=== PATIENT | male | born 1975 | race Caucasian/White ===

== ENCOUNTER 2016-11-04 12:56 | Emergency (ER) | payer MEDICAID ==
[~2016-11-04] VITALS: Ht 175.3 cm; Wt 82.6 kg
[2016-11-04 13:04] VITALS: BP 136/77
--- NOTE | 2016-11-04 13:53 | Emergency Room Report ---
History of Present Illness General Chief Complaint: Neck Pain Source: Patient Present Illness HPI 41 YO Male presents to the ED c/o itchy - dry rash on posterior neck x over 1 week, with swollen lump on the back of the head. Pt. denies pain report the lump will become tender 3/10 in severity after palpation. Denies fevers or chills. Denies lesions/rashes elsewhere on the body. Denies new medications or body washes or creams. denies swelling of the lips, tongue , airway, wheezing, or shortness of breath. Denies recent travel, recent illness or ill contacts. pt. reports nasal congestion x 2 days, reports intermittent sneezing, denies throat pain, neck pain or stiffness, nausea or vomiting. Denies CP, Palpitations , LOC, AMS, dizziness, Changes in Vision, Sensation, paresthesias, or a sudden severe headache. Allergies: Coded Allergies: No Known Allergies (Unverified , 11/04/16) Patient History Past Medical History: see triage record Past Surgical History: none Pertinent Family History: none Immunizations: UTD Reviewed Nursing Documentation: PMH: Agreed, PSxH: Agreed Nursing Documentation-PMH Past Medical History: No Stated History Review of Systems All Other Systems: negative except mentioned in HPI Physical Exam Vital Signs Date Time Temp Pulse Resp B/P Pulse Ox O2 Delivery O2 Flow Rate FiO2 11/04/16 13:04 97.9 87 18 136/77 95 Sp02 EP Interpretation: reviewed, normal General Appearance: no apparent distress, alert, GCS 15, non-toxic Head: normocephalic, atraumatic Eyes: bilateral eye PERRL, bilateral eye normal inspection ENT: hearing grossly normal, normal pharynx, no angioedema, normal voice, TMs + canals normal, uvula midline, other - no appreciable nasal discharge, or congestion noted. Neck: full range of motion, no meningismus, no bony tend, supple/symm/no masses Respiratory: lungs clear, normal breath sounds, speaking full sentences Cardiovascular #1: regular rate, rhythm, no edema Musculoskeletal: back normal, gait/station normal, normal range of motion, non- tender Neurologic: alert, oriented x3, responsive, motor strength/tone normal, sensory intact, speech normal Psychiatric: judgement/insight normal, memory normal, mood/affect normal Skin: normal color, warm/dry, well hydrated, rash - dry confluent non- blanching pink-purple plaques on the posterior neck and upper shoulder, with well defined border, no discharge, temperature, vessicles, or blisters. Lymphatic: other - posterior cervical and occipital LAD noted, no erythema or increased temperature to palpation. Medical Decision Making PA Attestation Dr. Mchugh is my supervising Physician whom patient management has been discussed with. Diagnostic Impression: Primary Impression: Tinea cruris Additional Impressions: Dermatitis Nasal sinus congestion Rash and nonspecific skin eruption ER Course Pt. presents to the ED c/o itchy - dry rash on posterior neck x over 1 week, with swollen lump on the back of the head. Pt. denies pain report the lump will become tender 3/10 in severity after palpation. Denies fevers or chills. denies lesions/rashes elsewhere on the body. denies recent travel, recent illness or ill contacts. pt. reports nasal congestion x 2 days, reports intermittent sneezing, denies throat pain, neck pain or stiffness, nausea or vomiting. Denies CP, Palpitations, LOC, AMS, dizziness, Changes in Vision, Sensation, paresthesias, or a sudden severe headache. Ddx considered but are not limited to cellulitis, scabies, shingles, varicella, dermatitis, urticaria, eczema, tinea Vital signs: are WNL, pt. is afebrile H&PE are most consistent with tinea infection or eczema dermatitis, no evidence of secondary bacterial infection. ORDERS: none required at this time, the diagnosis is clinical ED INTERVENTIONS: None required at this time. d/w pt. about antibiotic resistance, and that antibiotics are not warranted for his current symptoms. pt. requested abx. multiple times, and extensive pt. education was given. In addition to proper follow up instructions. DISCHARGE: At this time pt. is stable for d/c to home. Will provide printed patient care instructions, and any necessary prescriptions. Care plan and follow up instructions have been discussed with the patient prior to discharge. Last Vital Signs Date Time Temp Pulse Resp B/P Pulse Ox O2 Delivery O2 Flow Rate FiO2 11/04/16 13:04 97.9 87 18 136/77 95 Disposition: HOME, SELF-CARE Condition: Stable Scripts Cetirizine Hcl* (ZYRTEC*) 10 Mg Tablet 10 MG ORAL DAILY for 30 Days, #30 TAB 0 Refills Prov: Albertina Drake 11/04/16 Mometasone Furoate (NASONEX) 17 Gm [place].pump 2 SPRAYS NASAL DAILY, #17 GM 0 Refills Prov: Albertina Drake 11/04/16 Clotrimazole (Lotrimin AF) 12 Gm Cream..g. 1 GM TP BID, #24 GM Prov: Albertina Drake 11/04/16 Triamcinolone Acet (Triamcinolone Acetonide) 15 Gm Cream..g. 1 GM APPLIC BID, #15 GM 1 Refill Prov: Albertina Drake 11/04/16 Patient Instructions: Body Ringworm, Medical Screening Exam, Rash, [id number] Additional Instructions: Take medications as directed. Follow up with a Primary Care Provider in 3-5 days, even if your symptoms have resolved. May require Staff Certified Nurse Midwife referral from your primary care doctor. If you continue to have sinus congestion evaluation by a ENT ( ears, nose, throat) Specialist is recommended. --Please review list of primary care clinics, if you do not already have a primary care provider Return sooner to ED if new symptoms occur, or current symptoms become worse. - Please note that this Emergency Department Report was dictated using [employer] welding systems and equipment technology software, occasionally this can lead to erroneous entry secondary to interpretation by the dictation equipment. Albertina Drake Nov 04, 2016 13:53
[2016-11-04] MEDS ORDERED: NASONEX17 GM NASAL (13:56)
[2016-11-04] MEDS ORDERED: KENALOG 0.025%15 GM APPLIC (13:56)
[2016-11-04] MEDS ORDERED: ZYRTEC10 MG ORAL (13:56)
[2016-11-04] MEDS ORDERED: LOTRIMIN AF24 GM TP (13:56)
[2016-11-04 14:03] VITALS: BP 136/77
== END 2016-11-04 14:03 | disposition home or self-care (01) ==
LOC: EMR 13:34
DX: B35.6 Tinea cruris (principal); L30.9 Dermatitis, unspecified; R09.81 Nasal congestion; R21 Rash and other nonspecific skin eruption
CPT/HCPCS: 99284